=== PATIENT | male | born 1930 | race Caucasian/White ===

== ENCOUNTER 2017-03-30 13:42 | Emergency (ER) | payer MEDICARE ==
[2017-03-30 13:59] VITALS: BP 152/85
[2017-03-30] MEDS ORDERED: LIDOCAINE 1% INJECT ONE (14:17)
[2017-03-30] MEDS ORDERED: SODIUM BICARBONATE 4.2% INJECT ONE (14:17)
[2017-03-30] MEDS ORDERED: Lidocaine 1% with EPINEPHrine 1:100,000 50 ML MDV INJECT ONE (14:30)
[2017-03-30] MEDS ORDERED: Bacitracin Oint 1 GM U/D Packet TOP ONE (14:53)
--- NOTE | 2017-03-30 14:57 | EDM.PDOC ---
ED HPI GENERAL MEDICAL PROBLEM - General Chief Complaint: Head Injury Stated Complaint: SCALP LACERATION Time Seen by Provider: 03/30/17 14:22 Source of Information: Reports: Patient History Limitations: Reports: No Limitations - History of Present Illness INITIAL COMMENTS - FREE TEXT/NARRATIVE: Patient walked under a tree branch, branch caught him on the scalp, he developed a laceration. 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 - Related Data Allergies Allergy/AdvReac Type Severity Reaction Status Date / Time quinine Allergy Itching Verified 05/13/14 20:10 Home Meds: Home Meds Losartan [Cozaar] 50 mg PO 05/13/14 [History] Metoprolol Tartrate 50 mg PO BID 05/13/14 [History] Simvastatin [Simvastatin] 40 mg PO 05/13/14 [History] Past Medical History HEENT History: Reports: Cataract Cardiovascular History: Reports: High Cholesterol, Hypertension Social & Family History - Tobacco Use Smoking Status *Q: Never Smoker - Alcohol Use Days Per Week of Alcohol Use: 7 Number of Drinks Per Day: 2 Total Drinks Per Week: 14 - Recreational Drug Use Recreational Drug Use: No ED ROS GENERAL - Review of Systems Review Of Systems: See Below Constitutional: Denies: Fever, Weakness, Diaphoresis HEENT: Denies: Dental Pain, Ear Discharge, Ear Pain, Eye Pain, Hearing Loss, Nose Pain, Throat Pain, Throat Swelling Respiratory: Denies: Shortness of Breath, Wheezing, Pleuritic Chest Pain, Cough , Sputum Cardiovascular: Denies: Chest Pain, Dyspnea on Exertion, Edema, Lightheadedness , Palpitations, Syncope : Reports: No Symptoms Musculoskeletal: Denies: Neck Pain, Joint Pain, Joint Swelling Skin: Reports: Wound, Other (laceration to scalp from tree branch, bleeding controlled. ) Neurological: Denies: Confusion, Dizziness, Headache, Numbness, Paresthesia, Syncope, Tingling, Trouble Speaking, Difficulty Walking, Change in Speech Psychiatric: Reports: No Symptoms Hematologic/Lymphatic: Reports: No Symptoms Immunologic: Reports: No Symptoms ED EXAM, HEAD INJURY - Physical Exam Exam: See Below Exam Limited By: No Limitations General Appearance: Alert, WD/WN, No Apparent Distress Head: Normocephalic, Scalp Lacerations, Scalp Tenderness, Other (6 cm laceration in shape of "L". ). No: Scalp Swelling, Scalp Hematoma, Active Bleeding Nexus Criteria: No: Posterior, Midline Cervical Tenderness, Evidence of Intoxication, Altered Level of Consciousness, Focal Neurological Deficit, Painful Distraction Injuries Eyes: Bilateral Eye: Normal Inspection, PERRL Ears: Normal External Exam, Normal Canal, Hearing Grossly Normal, Normal TMs Nose: Normal Inspection, Normal Mucousa, No Blood Throat/Mouth: Normal Inspection, Normal Lips, Normal Teeth, Normal Gums, Normal Oropharynx, Normal Voice, No Airway Compromise Neck: Non-Tender, Full Range of Motion, Normal Alignment, Normal Inspection Respiratory: No Respiratory Distress, Lungs Clear, Normal Breath Sounds, No Accessory Muscle Use, Chest Non-Tender Cardiovascular: Normal Peripheral Pulses, Regular Rate, Rhythm, No Edema, No Gallop, No Murmur Back Exam: Normal Inspection, Full Range of Motion Extremities: No Evidence of Injury, Normal Range of Motion, Non-Tender, No Pedal Edema Neurologic: No Motor/Sensory Deficits, Alert, Normal Mood/Affect, Oriented x 3 Skin: Normal Color, Warm/Dry, Other (Laceration with no active bleeding noted. ) - [place] Coma Score Best Eye Response ([place]): (4) Open Spontaneously Best Verbal Response ([place]): (5) Oriented Best Motor Response ([place]): (6) Obeys Commands [place] Total: 15 ED LACERATION/WOUND & VINEET PROC - Laceration/Wound Repair Middle [place] Head Lac/wound length in cm: 6 (in shape of "L") Appearance: Subcutaneous, Irregular, Mildly Contaminated, Other (Wound flushed with 60 ml saline. ) Distal NVT: Neuro & Vascular Intact Anesthetic Type: Local Local Anesthesia - Lidocaine (Xylocaine): 1% With EPI Local Anesthetic Volume: Other (6ml) Skin Prep: Chlorhexidine (Hibiciens), Saline Exploration/Debridement/Repair: Wound Explored, Explored to Base, Other ( irrigation as mentioned. ) Closed with: [place], Other (7 elvira,area cleansed, bacitracin applied. ) Tetanus Status Addressed: Yes Complications: No Course - Vital Signs Last Recorded V/S: Last Vital Signs Temp 36.8 C 03/30/17 14:12 Pulse 70 03/30/17 14:12 Resp 14 03/30/17 14:12 BP 152/85 H 03/30/17 14:12 Pulse Ox 97 03/30/17 14:12 - Orders/Labs/Meds Meds: Medications Discontinued Medications Generic Name Dose Route Start Last Admin Trade Name Long PRN Reason Stop Dose Admin Bacitracin 1 dose 03/30/17 14:53 Bacitracin Oint 1 Gm TOP 03/30/17 14:54 ONETIME ONE Lidocaine/Epinephrine 5 ml 03/30/17 14:30 03/30/17 14:32 Xylocaine 1% With Epinephrine 1:100,000 INJECT 03/30/17 14:31 5 ml ONETIME ONE Administration Departure - Departure Time of Disposition: 14:54 Disposition: Home, Self-Care 01 Condition: good Clinical Impression: Laceration of scalp without complication - Discharge Information Instructions: Head Injury, Adult, [id number] Referrals: Mario Strauss Sr, MD [Primary Care Provider] - Forms: ED Department Discharge Additional Instructions: Keep wound clean and dry for 24 hours. You may shower and shampoo your hair after that, making sure you dry your scalp well. You can apply antibiotic ointment (bacitracin) to the wound twice a day. Return to the ER or your primary provider in 10 days for removal of the elvira. The wound was irrigated well, watch for signs of infection such as significant pain, pus-like drainage, redness and swelling. If this occurs return to the ER or report to your primary care provider. Take ibuprofen and acetaminophen as needed for pain. - Problem List Review Problem List Initiated/Reviewed/Updated: Yes - Assessment/Plan Assessment:: Laceration needing repair, wound cleaned, edges well approximated. Patient tolerated closure well. Tetanus status up to date. Plan: Keep area clean and dry for 24 hours, shower as directed. Apply bacitracin ointment twice per day in a thin layer. Return for signs of infection or head injury. Return as directed for removal of elvira in 10 day.
== END 2017-03-30 15:50 | disposition home or self-care (01) ==
LOC: JP.ED 13:42
DX: S01.01XA Laceration without foreign body of scalp, initial encounter (principal); I10 Essential (primary) hypertension; E78.00 Pure hypercholesterolemia, unspecified; Z88.8 Allergy status to other drugs, medicaments and biological substances; W20.8XXA Other cause of strike by thrown, projected or falling object, initial encounter
CPT/HCPCS: 12002; 99283; 99283-25

== ENCOUNTER 2019-06-08 07:29 | Day surgery (SDC) | payer MEDICARE ==
[~2019-06-08 07:29] MED LIST: Bacitracin Oint 1 GM U/D Packet ONE; Bupivacaine 0.5% 50 ML MDV ONE; Lidocaine 1% with EPINEPHrine 1:100,000 50 ML MDV ONE
[2019-06-08] MEDS ORDERED: fentaNYL 100 MCG/2 ML SDV ONE (07:58)
[2019-06-08] MEDS ORDERED: Propofol 200 MG/20 ML SDV ONE ×2 (07:58→11:42)
[2019-06-08] MEDS ORDERED: Dextrose 5%-Lactated Ringers 1,000 ML IV SCH (08:30)
[2019-06-08] MEDS ORDERED: ceFAZolin 2 GM in Premix Bag 1 BAG IV ONE (09:15)
[2019-06-08 12:38] VITALS: BP 162/95; PULSE 52
--- NOTE | 2019-06-15 14:42 | OR ---
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 OPERATIVE PROCEDURE: Reexcision of previously excised basal cell carcinoma on right cheek with layered closure ([id number]). ANESTHESIA: Local plus IV sedation. INDICATION FOR PROCEDURE: This is an 88-year-old presenting with a nodular lesion that appeared to be more subcutaneous than cutaneous in origin, just anterior to the ear. 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 The plan is to proceed with wide re-excision of this with frozen section monitoring of the margins intraoperatively. Potential risks of the procedure including bleeding, infection, injury to the facial nerve branches in that area, and possibility of the re-excision being still involved requiring additional treatment were gone over, and the patient wishes to proceed. DETAILS OF PROCEDURE: The patient was taken to the operating room and placed in a supine position with the head turned slightly toward the left. The right cheek and surrounding areas were then prepped and draped, and anesthetized with some 1% lidocaine mixed with Marcaine. A transversely-oriented incision was made. This included removal of the previous incision, and the incision length and margin length were by definition identical in this case, basically reexcising the previous scar and underlying soft tissue with a small additional margin. Both of these lengths were then 2.8 cm. After initial skin incision was made, the dissection was continued out more widely down to the level of the fascia. This more or less skeletonized the underlying temporal artery, but that was not divided or entered, and the specimen delivered from the field. The edges were oriented for the pathologic review. Frozen section showed no evident involvement of the margins. The incision was then closed with some 3-0 Vicryl stitch deep and 5-0 Prolene skin stitch. Some bacitracin was applied. The patient was taken to the recovery room in a satisfactory condition. Antony Zarate MD /[id number]
== END 2019-06-08 12:54 | disposition home or self-care (01) ==
LOC: JP.SDS 07:29
PROVIDERS: ATTEND Surgery
DX: C44.319 Basal cell carcinoma of skin of other parts of face (principal); I10 Essential (primary) hypertension; E78.00 Pure hypercholesterolemia, unspecified; K21.9 Gastro-esophageal reflux disease without esophagitis; Z88.8 Allergy status to other drugs, medicaments and biological substances
CPT/HCPCS: 11643; 12052; 88305; 88331; 88332; J0690; J2704; J3010; J3490; J7042